=== PATIENT | male | born 1940 | race Caucasian/White ===

== ENCOUNTER 2018-04-12 22:28 | Emergency (ER) | payer OTHER ==
[~2018-04-12] VITALS: Ht 175.3 cm; Wt 86.2 kg
[2018-04-12 22:31] VITALS: BP_SYST 153
[2018-04-12 23:23] VITALS: BP_SYST 148
== END 2018-04-12 23:23 | disposition home or self-care (01) ==
LOC: SED 22:28
DX: T83.098A Other mechanical complication of other urinary catheter, initial encounter (principal); R03.0 Elevated blood-pressure reading, without diagnosis of hypertension
CPT/HCPCS: 99284